=== PATIENT | male | born 1990 | race Hispanic/Latino ===

== ENCOUNTER 2017-11-25 13:22 | Emergency (ER) | payer SELFPAY | END 2017-11-25 13:38 | disposition left against medical advice (07) | LOC: ERS 13:22 | DX: Z53.21 Procedure and treatment not carried out due to patient leaving prior to being seen by health care provider (principal) ==

== ENCOUNTER → 2018-04-07 | Emergency (ER) | payer SELFPAY ==
[~2018-04-07] MED LIST: Ibuprofen 200 MG TAB ONE
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
== END ==
LOC: ERS 16:49
DX: M67.431 Ganglion, right wrist (principal); F17.210 Nicotine dependence, cigarettes, uncomplicated

== ENCOUNTER 2018-07-04 12:08 | Inpatient (IN) | payer SELFPAY ==
[~2018-07-04 12:08] MED LIST changes: +Gadobenate Dimeglumine 529 MG/1 ML (20ML VIAL) ONE; -Ibuprofen 200 MG TAB ONE
[2018-07-04 14:17] LABS: #Basophils 0.1 thou/uL (0.0-0.2); #Eosinphils 0.3 thou/uL (0.0-0.7); #Lymphocytes 3.2 thou/uL (1.20-3.40); #Monocytes 0.7 thou/uL (0.11-0.59); #Neutrophils 3.8 thou/uL (1.40-6.50); %Basophils 1.7 % (0.0-1.0); %Eosinophils 3.8 % (0.0-10.0); %Monocytes 8.9 % (0.0-10.0); %Neutrophils 46.7 % (42.0-75.0); Mean Corpuscular HGB CONC 32.7 g/dL (32.0-36.0); Mean Corpuscular Hemoglobin 30.6 pg (27.0-31.0); Mean Corpuscular Volume 93.8 fL (78.0-98.0); Mean Platelet Volume 8.9 fL (7.4-10.4); Platelet Count 248 thou/uL (130-400); RBC Distribution Width 11.4 % (11.5-14.5); Red Blood Cell (RBC) Count 5.54 mill/uL (4.70-6.10); White Blood Cell (WBC) Count 8.1 thou/uL (4.8-10.8)
[2018-07-04 14:41] LABS: ALT (SGPT) 15 U/L (8-55); AST (SGOT) 14 U/L (5-34); Albumin 4.9 g/dL (3.5-5.0); Alkaline Phosphatase 68 U/L (40-150); Anion Gap 10 mmol/L (10-20); BUN (Urea Nitrogen) 13 mg/dL (8.9-20.6); Bilirubin, Total 0.3 mg/dL (0.2-1.2); CRP (Inflammatory) Less than 0.50 mg/dL (= or < 0.5); Calc. Creatinine Clearance 0 mL/min (70-130); Calcium 9.7 mg/dL (7.8-10.44); Carbon Dioxide 28 mmol/L (22-29); Chloride 103 mmol/L (98-107); Estimated GFR-MDRD Greater than 90; Globulin 2.5 g/dL (2.4-3.5); Glucose 82 mg/dL (70-105); Potassium 3.4 mmol/L (3.5-5.1); Protein, Total 7.4 g/dL (6.0-8.3); Sodium 138 mmol/L (136-145)
--- NOTE | 2018-07-04 16:25 | MRI ---
MRI thoracic spine with and without contrast Clinical history: Back pain.:. History of epidural injection FINDINGS: There is no evidence of acute compression fracture. No retropulsion of bone. There is focal marrow edema involving the anterior/inferior aspect of T9 vertebral body. There is no evidence of significant intramedullary signal abnormality. No mass-producing enhancement of vertebral canal. No a cute disc space inflammation or enhancement. There is a small right paracentral disc protrusion at the T3-4 level with slight effacement of ventral right hemicord, small right paracentral disc protrus ion with slight flattening of right ventral hemicord at the T4-5 level. Additional mild multilevel disc degenerative changes are present with slight effacement of ventral thecal sac. IMPRESSION: There is no MR evidence of mass-producing enhancement of the vertebral canal. No epidural abscess is evident. Small multilevel disc protrusions with effacement of the thoracic spinal cord, as above. Transcribed Date/Time: 07/04/2018 7:22 PM
--- NOTE | 2018-07-04 16:48 | MRI ---
MRI Cervical spine with and without contrast: HISTORY: Neck Pain COMPARISON: None FINDINGS: The craniocervical junction is unremarkable. There is increased T2 signal, intramedullary in location, within the cervical spinal cord at the T5-6 level. There is motion which distorts the cord signal, thus limiting evaluation Posterior paraspinous soft tissue edema is present. C1-2:No significant stenosis. C2-3:No significant stenosis. C3-4:Mild disc bulge with effacement of ventral thecal sac. There is left uncinate process hypertroph y with mild left foraminal stenosis C4-5:Small central disc protrusion without significant cord compromise or foraminal stenosis C5-6:Right paracentral disc protrusion is present. In addition, there is extradural enhancing signal, which is separate from the disc protrusion, with associated pathologic dural based enhancement that ascends to the proximal C5 level and inferiorly to the mid C6 level. This does approximate the v entral cervical spinal cord with slight right hemicord effacement. There is associated marrow enhancement of the adjacent, superior aspect of the C6 vertebral body which demonstrates edema. C6-7: No significant stenosis. C7-T1:No significant stenosis IMPRESSION: Abnormal extradural enhancement, involving anterior aspect of the vertebral canal of the C5 and C6 le gabrielle with associated right ventral hemicord effacement. This is adjacent to, but separate from disc protrusion. This may relate to inflammatory enhancement given its configuration therefore the possibi lity of epidural phlegmon/abscess is not excluded. Adjacent mild increased T2 signal of the cervical spinal cord at this level could relate to reactive edema, although motion artifact does limi t evaluation. There is also edema/enhancement of the adjacent C6 vertebral body Correlate clinically Telephone call placed to Faheem alvarado at the time of dictation, 1640 hours. Transcribed Date/Time: 07/04/2018 7:29 PM
[2018-07-04] MEDS ORDERED: cefTRIAXone\\ROCEPHIN 2 GM VIAL ONE (17:27)
[2018-07-04] MEDS ORDERED: Clindamycin/D5W 900 mg/50 ml Premix Bag ONE (17:27)
[2018-07-04] MEDS ORDERED: Morphine 4 MG/ML VIAL ONE (17:27)
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
[2018-07-04 19:08] LABS: Color Of CSF Supernatant COLORLESS (Colorless); Tube # 2; Unspun CSF Color COLORLESS (Colorless)
[2018-07-04 19:20] LABS: CSF, Glucose 52 mg/dl (40-70); CSF, Protein 42 mg/dL (15-40)
[2018-07-04 19:21] LABS: CSF Source CSF; Clarity Clear (Clear); RBC Count - Manual 17 /cumm (None Seen); Tube # 4; WBC/NonHematics Count - Manual 2 /cumm (0-5)
[2018-07-04 20:22] VITALS: BMI 23.1
[2018-07-04] MEDS ORDERED: Heparin 1,000 UNITS/ML VIAL ONE (20:38)
[2018-07-04] MEDS ORDERED: Acetaminophen 325 MG TAB PO PRN (20:48)
[2018-07-04] MEDS ORDERED: Ibuprofen 800 MG TAB PO PRN (20:53)
[2018-07-04] MEDS: Nicotine 14 MG PATCH TD SCH (21:18)
[2018-07-05 00:31] LABS: Syphilis Antibody Nonreactive (Nonreactive); Syphilis Antibody Index 0.01 S/CO (<1.00 Non-Reactive)
[2018-07-05 00:33] LABS: HIV (1/2) Antibody/Antigen Non-Reactive (NonReactive); HIV 1/2 INDEX 0.08 S/CO (<1.00); Hep C IgG Ab Non-Reactive (NonReactive); Hep C Index 0.07 S/CO (0-0.79)
--- NOTE | 2018-07-05 01:57 | OP ---
DATE OF PROCEDURE: 07/04/2018 PROCEDURE PERFORMED: Lumbar puncture with CSF collection. Consent Obtained. DESCRIPTION OF PROCEDURE: The patient was brought into the trauma room 11. He was placed in the lateral decubitus position. The patient was prepped with Betadine and draped in sterile fashion. A 22-gauge needle was used to for local anesthesia, 1% lidocaine without epinephrine. An 8-gauge spinal needle was passed at L4-L5 space with return of clear CSF on the first pass. CSF flow was slow, but I was able to collect 2 mL in all 4 tubes. The spinal needle was then removed and a small bandage was placed. The patient tolerated the procedure well. The CSF was sent to the lab for evaluation with WBCs, RBCs, protein, glucose, Gram stain, as well as cultures. We will continue to follow these results. Job ID: [id number] MTDD
--- NOTE | 2018-07-05 02:03 | CON ---
DATE OF CONSULTATION: HISTORY OF PRESENT ILLNESS: The patient is a 27-year-old male who presented to the ER for neck pain. The patient reports his neck pain began yesterday, describes as stiff sensation and painful with any movement. He reports he has history of chronic neck and upper back pain and recently followed up with pain management, Dr. Morataya and had upper thoracic epidural steroid injection on Saturday07/02/18. Following the injection, patient had gradual worsening of his neck pain and discomfort with any range of motion. He denies any headaches, dizziness, nausea , vomiting. Denies any fever. He has no other associated symptoms. MRI of the cervical spine was completed, which was notable for T2 enhancement of the epidural space at C5-C6 as well as prevertebral edema concerning for infectious process. Neurosurgery was consulted for further evaluation of these findings. His is lab work shows normal WBC and CRP. He has been afebrile throughout his course. PAST MEDICAL HISTORY: Chronic neck and back pain. PAST SURGICAL HISTORY: No prior surgeries. SOCIAL HISTORY: The patient does not smoke. Denies IV drug use. ALLERGIES: NO KNOWN DRUG ALLERGIES. REVIEW OF SYSTEMS: Per HPI. PHYSICAL EXAMINATION: VITAL SIGNS: BP is 107/68, pulse is 58, respiration rate is 16, the patient has 97.8 temperature. CONSTITUTIONAL: GCS 15. A and O x4. No acute distress. HEENT: Head is normocephalic and atraumatic. Eyes, PERRLA. Extraocular movements intact. ENT : Oral mucosa is pink, intact and moist. The patient has normal voice. NECK: Positive meningismus and nuchalrigidity. CARDIOVASCULAR: Regular rate and rhythm. RESPIRATORY: Symmetric chest expansion. MUSCULOSKELETAL: Free active range of motion of all extremities. No focal motor weakness. No reflex asymmetry. NEUROLOGIC: A and O x4. Normal speech. No focal neurologic deficits are appreciated. ASSESSMENT AND PLAN: This is an otherwise healthy 27-year-old male with progressively worsening neck pain following an epidural steroid injection the day prior. He has findings concerning on MRI concerning for infectious process at the C5-C6 epidural space. There is no obvious fluid collection or drainable abscess apparent on this MRI. At this point, no acute neurosurgical intervention is anticipated. We will do LP in the emergency department for further evaluation of the cerebrospinal fluid. I have recommended admission to the Medical Service and also ID consult. I have discussed this plan with Dr. Trejo who is in agreement. Job ID: [id number] MTDD
[2018-07-05 02:31] LABS: Amphetamine Not Detected (NotDetected); Barbiturates Screen Not Detected (NotDetected); Benzodiazepine Screen Not Detected (NotDetected); Cocaine Metabolite Screen Not Detected (NotDetected); Medtox Reader # READER 4; Methadone Not Detected (NotDetected); Methamphetamine Not Detected (NotDetected); Opiate Screen Detected (NotDetected); Phencyclidine (PCP) Not Detected (NotDetected); THC/Cannabinoid Screen Not Detected (NotDetected); Tricyclic Screen Not Detected (NotDetected)
[2018-07-05 02:32] LABS: Medtox Control Line Valid? VALID (VALID); Oxycodone Screen Not Detected (NotDetected)
[2018-07-05] MEDS: cefTRIAXone\\ROCEPHIN 2 GM in Sodium Chloride 0.9% 100 ML IVPB SCH ×2 (04:20→14:44)
[2018-07-05] MEDS: Vancomycin HCl 1.25 GM in Sodium Chloride 0.9% 250 ML 250 ML IVPB SCH ×3 (05:18→22:50)
[2018-07-05] MEDS ORDERED: cefTRIAXone\\ROCEPHIN 2 GM in Sodium Chloride 0.9% 100 ML IVPB SCH (06:00)
[2018-07-05 06:40] LABS: #Basophils 0.1 thou/uL (0.0-0.2); #Eosinphils 0.3 thou/uL (0.0-0.7); #Lymphocytes 2.9 thou/uL (1.20-3.40); #Monocytes 0.8 thou/uL (0.11-0.59); #Neutrophils 5.6 thou/uL (1.40-6.50); %Basophils 0.8 % (0.0-1.0); %Eosinophils 3.3 % (0.0-10.0); %Lymphocytes 30.1 % (21.0-51.0); %Monocytes 8.5 % (0.0-10.0); %Neutrophils 57.2 % (42.0-75.0); Hemoglobin 14.2 g/dL (14.0-18.0); Mean Corpuscular HGB CONC 32.5 g/dL (32.0-36.0); Mean Corpuscular Hemoglobin 30.9 pg (27.0-31.0); Mean Corpuscular Volume 95.1 fL (78.0-98.0); Mean Platelet Volume 8.7 fL (7.4-10.4); Platelet Count 219 thou/uL (130-400); RBC Distribution Width 11.2 % (11.5-14.5); Red Blood Cell (RBC) Count 4.58 mill/uL (4.70-6.10); White Blood Cell (WBC) Count 9.8 thou/uL (4.8-10.8)
[2018-07-05] MEDS: Ketorolac Tromethamine 30 MG/ML VIAL IVP PRN ×4 (06:44→22:51)
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
[2018-07-05] MEDS: Enoxaparin Sodium 40 MG/0.4 ML SYRINGE SC SCH (07:52)
[2018-07-05] MEDS: Nicotine 14 MG PATCH TD SCH (22:58)
[2018-07-06] MEDS: Ketorolac Tromethamine 30 MG/ML VIAL IVP PRN ×2 (05:19→13:50)
[2018-07-06] MEDS: cefTRIAXone\\ROCEPHIN 2 GM in Sodium Chloride 0.9% 100 ML IVPB SCH ×2 (05:20→16:02)
[2018-07-06] MEDS: Vancomycin HCl 1 GM in Premix Bag 1 BAG IVPB SCH ×3 (05:20→16:01)
[2018-07-06 06:27] LABS: #Basophils 0.1 thou/uL (0.0-0.2); #Eosinphils 0.5 thou/uL (0.0-0.7); #Lymphocytes 2.3 thou/uL (1.20-3.40); #Monocytes 0.7 thou/uL (0.11-0.59); #Neutrophils 3.8 thou/uL (1.40-6.50); %Basophils 1.2 % (0.0-1.0); %Eosinophils 7.2 % (0.0-10.0); %Neutrophils 51.7 % (42.0-75.0); Mean Corpuscular HGB CONC 32.9 g/dL (32.0-36.0); Mean Corpuscular Hemoglobin 31.2 pg (27.0-31.0); Mean Corpuscular Volume 94.9 fL (78.0-98.0); Mean Platelet Volume 8.5 fL (7.4-10.4); Platelet Count 204 thou/uL (130-400); RBC Distribution Width 11.1 % (11.5-14.5); Red Blood Cell (RBC) Count 4.49 mill/uL (4.70-6.10); White Blood Cell (WBC) Count 7.3 thou/uL (4.8-10.8)
--- NOTE | 2018-07-06 06:29 | PDOC.FM ---
- Subjective Subjective: No overnight events. Still working on getting MRI images from outside hospital. Denies pain, fever, chills, new weakness or loss of continence. - Objective MAR Reviewed: Yes Vital Signs & Weight: Vital Signs (12 hours) Temp Pulse Resp BP Pulse Ox 07/05/18 19:51 97.8 F 51 L 16 102/59 L 96 07/05/18 19:39 96 Weight Weight 66.905 kg Result Diagrams: 07/06/18 06:07 07/04/18 14:00 Phys Exam - Physical Examination Constitutional: NAD HEENT: moist MMs Neck: supple Respiratory: no wheezing, clear to auscultation bilateral Cardiovascular: RRR, no significant murmur Gastrointestinal: soft, non-tender, positive bowel sounds Musculoskeletal: no edema Neurological: moves all 4 limbs Psychiatric: normal affect, A&O x 3 Skin: no rash Dx/Plan (1) Epidural abscess Code(s): G06.2 - EXTRADURAL AND SUBDURAL ABSCESS, UNSPECIFIED Status: Acute - Plan Plan: 27yo male presents with epidural abscess Epidural abscess - VSS, no leukocytosis, CRP<0.5 - 07/02 steroid spinal injection by pain management - MRI C5-6: extradural enhancement, cannot exclude epidural abscess - Blood cultures pending (drawn s/p ceftriaxone x1 in ED) - Continue vanc, ceftriaxone (07/04) - Dr. Reyes consulted, appreciate recs - Neurosurgery consulted from ED -spinal tap 07/04, CSF studies pending - HIV, Hep, syphilis negative Code Status: FULL DVT ppx: Lovenox PCP: CC Addendum - Attending - Attending Attestation Date/Time: 07/06/18 0554 I personally evaluated the patient and discussed the management with Dr. Grimm I agree with the History, Examination, Assessment and Plan documented above with any addition or exceptions noted below. CSF studies NR to date patient Patient stable recommend increased activity continue ABX day # 2 pending rec from ID and Neurosurgery and CSF culture results. Epidural abscess could not be ruled out on MRI however clinically patient remains with s/s any significant infection.
[2018-07-06] MEDS: Enoxaparin Sodium 40 MG/0.4 ML SYRINGE SC SCH (07:40)
--- NOTE | 2018-07-06 08:03 | PRG ---
DATE OF SERVICE: 07/06/2018 The patient is a 27-year-old male, admitted on 07/04/2018 by the Family Medicine Service for concern of infection in the epidural and pervertebral space of cervical spine at C5-C6. There was no clear abscess or drainable fluid collection. His neck pain and nuchal rigidity has improved since admission. He has mild discomfort with extension. He has been afebrile throughout the admission. His CSF cultures have so far been negative for any growth. Additionally, other CSF studies were negative for significant abnormalities. His blood cultures have also remained negative. His WBC and CRP have remained normal. The patient is awake, alert, comfortable, in no acute distress. He has mild discomfort with extension of the neck. He is nonfocal on his exam. At this point, the patient remains neurologically intact. There are no plans for neurosurgical intervention at this time. Defer to Medical Team and ID for antibiotic regimen. Job ID: [id number] MTDD
--- NOTE | 2018-07-06 10:16 | PRG ---
DATE OF SERVICE: 07/06/2018 I agree with Keesha Kim's evaluation on 07/04/2018 and 07/06/2018. The patient seems to be improving on antibiotics. His MRI findings were quite subtle and lumbar puncture has been unremarkable thus far. We will defer to the Primary Team and Infectious Disease regarding the need for ongoing empirical antibiotics. No specific neurosurgical recommendations. Job ID: [id number]
[2018-07-06] MEDS ORDERED: Senokot 8.6 MG TAB PO PRN (15:38)
[2018-07-06] MEDS ORDERED: Polyethylene Glycol 3350 17 GM Packet PO PRN (15:38)
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
[2018-07-06] MEDS: Nicotine 14 MG PATCH TD SCH (20:30)
[2018-07-06 23:22] LABS: Vancomycin, Trough 19.8 ug/mL
[2018-07-07] MEDS: Vancomycin HCl 1 GM in Premix Bag 1 BAG IVPB SCH ×4 (00:09→19:10)
[2018-07-07] MEDS: Ketorolac Tromethamine 30 MG/ML VIAL IVP PRN (00:15)
[2018-07-07] MEDS: cefTRIAXone\\ROCEPHIN 2 GM in Sodium Chloride 0.9% 100 ML IVPB SCH ×2 (05:00→17:11)
--- NOTE | 2018-07-07 06:50 | PDOC.FM ---
- Subjective Subjective: No overnight events. Denies pain, shortness of breath, fever, chills, new weakness. Had some left upper leg cramping/tingling last night that has resolved. Will have PICC placed today. - Objective MAR Reviewed: Yes Vital Signs & Weight: Vital Signs (12 hours) Temp Pulse Resp BP Pulse Ox 07/07/18 04:00 97.2 F L 54 L 16 115/64 97 07/07/18 00:00 98.2 F 55 L 16 125/72 96 07/06/18 20:00 97.7 F 65 16 123/75 96 Weight Weight 66.905 kg I&O: 07/05/18 07/06/18 07/07/18 06:59 06:59 06:59 Intake Total 4100 Balance 4100 Result Diagrams: 07/07/18 07:25 07/07/18 07:25 Phys Exam - Physical Examination Constitutional: NAD HEENT: moist MMs Neck: supple Respiratory: no wheezing, clear to auscultation bilateral Cardiovascular: RRR, no significant murmur Gastrointestinal: soft, non-tender, positive bowel sounds Musculoskeletal: no edema Neurological: moves all 4 limbs Psychiatric: normal affect, A&O x 3 Skin: no rash Dx/Plan (1) Epidural abscess Code(s): G06.2 - EXTRADURAL AND SUBDURAL ABSCESS, UNSPECIFIED Status: Acute - Plan Plan: 27yo male presents with epidural abscess Suspected Epidural abscess - VSS, no leukocytosis, CRP<0.5. - HIV, Hep, syphilis negative - 07/02 steroid spinal injection by pain management - MRI C5-6: extradural enhancement, cannot exclude epidural abscess - Dr. Reyes consulted, appreciate recs - Blood cultures NGTD (drawn s/p ceftriaxone x1 in ED). Spinal fluid from 07/04, CSF studies NGTD - Continue vanc, ceftriaxone (07/04). Will have PICC line placed today Code Status: FULL DVT ppx: Lovenox PCP: CC Addendum - Attending - Attending Attestation Date/Time: 07/07/18 1899 I personally evaluated the patient and discussed the management with Dr. Grimm. I agree with the History, Examination, Assessment and Plan documented above with any addition or exceptions noted below. Pt is resting comfortably this morning. will get picc line today. Case mgmt is working to arrange for outpt antibiotics.
[2018-07-07] MEDS: Enoxaparin Sodium 40 MG/0.4 ML SYRINGE SC SCH (07:33)
[2018-07-07 08:05] LABS: #Basophils 0.1 thou/uL (0.0-0.2); #Eosinphils 0.5 thou/uL (0.0-0.7); #Lymphocytes 1.8 thou/uL (1.20-3.40); #Monocytes 0.7 thou/uL (0.11-0.59); #Neutrophils 3.2 thou/uL (1.40-6.50); %Basophils 1.5 % (0.0-1.0); %Eosinophils 7.7 % (0.0-10.0); %Lymphocytes 29.4 % (21.0-51.0); %Monocytes 10.5 % (0.0-10.0); Hemoglobin 14.3 g/dL (14.0-18.0); Mean Corpuscular HGB CONC 32.4 g/dL (32.0-36.0); Mean Corpuscular Hemoglobin 30.2 pg (27.0-31.0); Mean Corpuscular Volume 93.2 fL (78.0-98.0); Platelet Count 211 thou/uL (130-400); RBC Distribution Width 11.1 % (11.5-14.5); Red Blood Cell (RBC) Count 4.73 mill/uL (4.70-6.10); White Blood Cell (WBC) Count 6.3 thou/uL (4.8-10.8)
[2018-07-07 08:13] LABS: Calc. Creatinine Clearance 138 mL/min (70-130); Estimated GFR-MDRD Greater than 90
[2018-07-07 08:31] LABS: PTT 30.6 SEC (22.9-36.1); Prothrombin Time 13.4 SEC (12.0-14.7)
--- NOTE | 2018-07-07 14:31 | SPC ---
SPC CVP LINE PICC INITAL >5 History: [Need for long-term IV access.] Comparison: None Findings: Patient was brought to the fluoroscopy suite. Questions were answered. Informed consent was obtained. Timeout performed. The patient's left arm was prepped and draped in normal sterile fashion. Using ultrasound guidance le ft basilic vein was accessed. Over a wire and through a peel-away sheath with fluoroscopic guidance a PICC was placed with tip in the inferior SVC. Patient tolerated the procedure well without complica tion. Impression: Technically successful PICC line placement. Fluoroscopy time: 0.1 minutes
--- NOTE | 2018-07-07 17:20 | RAD ---
Radiograph chest one view: HISTORY: 27-year-old male with positional chest pain FINDINGS: The visualized lung mercado are clear. The cardiomediastinal silhouette is normal. No pneumothorax. Th ere is a left-sided PICC with distal tip overlying the upper portion of the right atrium. IMPRESSION: No acute cardiopulmonary findings. Left-sided peripherally inserted central catheter.
--- NOTE | 2018-07-07 20:33 | RAD ---
EXAM: CHEST ONE VIEW: History: Confirm PICC catheter placement. Comparison: 07-07-18 at 4:46 p.m. FINDINGS: Heart size is normal. The lungs are clear. Granuloma calcification in the left midlung zone, stable. The PICC line appears to be slightly pulled back on the previous study the tip extended down to the u pper T9 vertebral body level and now is at the level of the mid T8 vertebral body. IMPRESSION: No acute intrathoracic disease. The tip of the PICC catheter is at the mid lower T8 level. POS: RRE
[2018-07-07] MEDS: Nicotine 14 MG PATCH TD SCH (20:47)
[2018-07-07 23:18] LABS: Vancomycin, Trough 27.4 ug/mL
[2018-07-08] MEDS: Ketorolac Tromethamine 30 MG/ML VIAL IVP PRN ×2 (00:01→08:45)
[2018-07-08 05:21] LABS: #Basophils 0.1 thou/uL (0.0-0.2); #Eosinphils 0.6 thou/uL (0.0-0.7); #Lymphocytes 2.6 thou/uL (1.20-3.40); #Monocytes 1.1 thou/uL (0.11-0.59); #Neutrophils 4.9 thou/uL (1.40-6.50); %Basophils 1.1 % (0.0-1.0); %Eosinophils 6.1 % (0.0-10.0); %Lymphocytes 27.8 % (21.0-51.0); %Monocytes 11.9 % (0.0-10.0); Hemoglobin 14.6 g/dL (14.0-18.0); Mean Corpuscular HGB CONC 32.4 g/dL (32.0-36.0); Mean Corpuscular Hemoglobin 30.6 pg (27.0-31.0); Mean Corpuscular Volume 94.6 fL (78.0-98.0); Mean Platelet Volume 8.6 fL (7.4-10.4); Platelet Count 211 thou/uL (130-400); RBC Distribution Width 11.1 % (11.5-14.5); Red Blood Cell (RBC) Count 4.77 mill/uL (4.70-6.10); White Blood Cell (WBC) Count 9.3 thou/uL (4.8-10.8)
[2018-07-08] MEDS: cefTRIAXone\\ROCEPHIN 2 GM in Sodium Chloride 0.9% 100 ML IVPB SCH (05:31)
[2018-07-08] MEDS: Vancomycin HCl 1 GM in Premix Bag 1 BAG IVPB SCH ×2 (05:32→14:59)
[2018-07-08] MEDS ORDERED: Sodium Chloride 0.9% 100 ML ONE (06:05)
[2018-07-08] MEDS ORDERED: Tranexamic Acid 1,000 MG/10 ML VIAL ONE (06:05)
--- NOTE | 2018-07-08 06:47 | PDOC.FM ---
- Subjective Subjective: Feeling well. No overnight events. Working on arranging outpt IV antibiotics. Chest discomfort resolved last night after PICC line was pulled back. No concerns or complaints. - Objective MAR Reviewed: Yes Vital Signs & Weight: Vital Signs (12 hours) Temp Pulse Resp BP Pulse Ox 07/07/18 20:00 97.5 F L 60 18 122/59 L 98 Weight Weight 66.905 kg I&O: 07/06/18 07/07/18 07/08/18 06:59 06:59 06:59 Intake Total 4100 Balance 4100 Result Diagrams: 07/08/18 04:49 07/07/18 07:25 Phys Exam - Physical Examination Constitutional: NAD HEENT: moist MMs Neck: supple Respiratory: no wheezing, clear to auscultation bilateral Cardiovascular: RRR, no significant murmur Gastrointestinal: soft, non-tender, positive bowel sounds Musculoskeletal: no edema Neurological: moves all 4 limbs Psychiatric: normal affect, A&O x 3 Skin: no rash Dx/Plan (1) Epidural abscess Code(s): G06.2 - EXTRADURAL AND SUBDURAL ABSCESS, UNSPECIFIED Status: Acute - Plan Plan: 27yo male presents with epidural abscess Suspected Epidural abscess - VSS, no leukocytosis, CRP<0.5. - HIV, Hep, syphilis negative - 07/02 steroid spinal injection by pain management - MRI C5-6: extradural enhancement, cannot exclude epidural abscess - Dr. Reyes consulted, appreciate recs - Blood cultures NGTD (drawn s/p ceftriaxone x1 in ED). Spinal fluid from 07/04, CSF studies NGTD - Continue vanc, ceftriaxone (07/04). PICC line placed. CM consulted for outpt IV ABX acquisition Code Status: FULL DVT ppx: Lovenox PCP: CC Addendum - Attending - Attending Attestation Date/Time: 07/08/18 [id number] I personally evaluated the patient and discussed the management with Dr. Grimm. I agree with the History, Examination, Assessment and Plan documented above with any addition or exceptions noted below. Pt is doing well. His picc line was pulled back and chest discomfort resolved. Waiting on outpt antibiotics to be arranged.
[2018-07-08 07:25] VITALS: TEMP 97.7
[2018-07-08] MEDS: Enoxaparin Sodium 40 MG/0.4 ML SYRINGE SC SCH (08:41)
[2018-07-08 16:49] VITALS: BP 143/83
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
[2018-07-10] MEDS ORDERED: Ibuprofen 800 MG TAB PO PRN (06:00)
--- NOTE | 2018-07-10 16:09 | PQF ---
[employer] Coordinator [employer] Winform ViewerCHAPARRITA GOODEN GRADY *r [id number] CLINICAL DOCUMENTATION CLARIFICATION FORM: POST DISCHARGE Addendum to original discharge summary date: ____ Late entry note date: __ DATE: 07/10/2018 ATTN: VIC CLRAOS Please exercise your independent, professional judgment in responding to the clarification form. Clinical indicators are provided on the bottom of this form for your review Please check appropriate box(s): [ x ] (Condition) is a complication of steroid injection [ ] (Condition) is not a complication of steroid injection [ ] Other diagnosis [ ] Unable to determine In addition, please specify: Present on Admission (POA): [x ] Yes [ ] No [ ] Unable to determine CLINICAL INDICATORS - SIGNS / SYMPTOMS / LABS CT / x-ray results MRI SHOWED C5-6 EXTRADURAL ENHANCEMENT Pain IN NECK INCREASE BLOOD CULTURE BACILLUS SPECIES IN H&P 07/04 Infection EPIDURAL ABSCESS H&P 07/04 RISK FACTORS Recent STEROID SPINAL INJECTION ON 07/02 BEFORE ADMISSION TREATMENT: Antibiotics: ROCEPHIN AND VANCOMYCIN H&P 07/04 (This form is maintained as a part of the permanent medical record) 2014 [employer] All Rights Reserved [email or web address] [phone] [facility]
== END 2018-07-08 16:48 | disposition home or self-care (01) | DRG 867 ==
LOC: ERS 12:08 → T4-A 18:07
PROVIDERS: ADMIT Family Medicine; ATTEND Family Medicine
PROC: 009U3ZX Drainage of Spinal Canal, Percutaneous Approach, Diagnostic (ICD-10-PCS; principal; 2018-07-04)
PROC: 02HV33Z Insertion of Infusion Device into Superior Vena Cava, Percutaneous Approach (ICD-10-PCS; 2018-07-07)
PROC: B5181ZA Fluoroscopy of Superior Vena Cava using Low Osmolar Contrast, Guidance (ICD-10-PCS; 2018-07-07)
DX: T80.29XA Infection following other infusion, transfusion and therapeutic injection, initial encounter (principal); G06.2 Extradural and subdural abscess, unspecified; L81.8 Other specified disorders of pigmentation; G89.29 Other chronic pain; M54.2 Cervicalgia; B96.89 Other specified bacterial agents as the cause of diseases classified elsewhere
CPT/HCPCS: 36415; 36569; 71045; 72156; 72157; 80053; 80202; 80306; 82565; 82945; 84157; 85025; 85610; 85652; 85730; 86140; 86780; 86803; 87040; 87070; 87205; 87389; 89051; 96365; 96375; A9577; C1751; J0690; J0696; J1644; J1650; J1885; J2270; J3370; J3490; J7050

== ENCOUNTER 2018-08-15 14:35 | Outpatient (CLI) | payer SELFPAY ==
--- NOTE | 2018-08-15 16:53 | MRI ---
Exam: MRI cervical spine with and without contrast COMPARISON: 07/04/2018 HISTORY: Epidural abscess. FINDINGS: Appropriate T1 marrow signal intensity of the cervical vertebra. Cervical spine vertebral body height is maintained. No fracture. No significant STIR hyperintensity to suggest vertebral body edema or ligamentous injury. Straightening of normal cervical lordosis is presumed to be positional Postcontrast images do not demonstrate any abnormal enhancement with regards to the vertebral bodies. There is no abnormal enhancement with regards to the visualized brain parenchyma, cervicomedullary junction, cervical cord and the upper thoracic cord. There is appropriate signal intensity in size of the visualized spinal cord. There is persistent dural prominence along the right aspect of the central spinal canal at the C5-C6 level. This prominence is probably the anterior right epidural region. There does appear to be an associated disc. The degree of enhancement has decreased and the residual enhancement is presumed to be due to reactive changes of the posterior longitudinal ligament. No significant phlegmonous change in the prevertebral or paraspinal soft tissues/musculature C2-C3: No significant central canal stenosis or neural foraminal narrowing C3-C4: No significant central canal stenosis or neural foraminal narrowing. C4-C5: No significant central canal stenosis or neural foraminal narrowing C5-C6: Central/right paracentral disc osteophyte complex. Mass effect upon the right hemicord. No cor d hyperintensity. Mild narrowing of the right subarticular zone. Bilateral facet hypertrophy with moderate right and [id number] left foraminal narrowing 6-C7: No significant central canal stenosis or neural foraminal narrowing C7-T1 no significant central canal stenosis or foraminal narrowing. IMPRESSION: Persistent degenerative changes involving the right subarticular zone at C5-C6 with pers istent enhancement and thickening of the posterior longitudinal ligament enhancement and ligamentous thickening is presumed to be due to reactive change from disc protrusion. No evidence of epidural abscess or phlegmon. Transcribed Date/Time: 08/15/2018 5:16 PM
== END 2018-08-15 14:36 | disposition home or self-care (01) ==
LOC: MRI 14:35
PROVIDERS: ATTEND Internal Medicine Infectious Disease
DX: G06.2 Extradural and subdural abscess, unspecified (principal); M47.812 Spondylosis without myelopathy or radiculopathy, cervical region
CPT/HCPCS: 72156

== ENCOUNTER 2019-07-17 09:16 | Emergency (ER) | payer OTHER, SELFPAY ==
[2019-07-17 18:20] LABS: SARS-CoV-2 MS2 Positive; SARS-CoV-2 N Gene Negative; SARS-CoV-2 S Gene Negative; SARS-CoV-2 orf1ab Negative
== END 2019-07-17 09:53 | disposition home or self-care (01) ==
LOC: ERS 09:16
DX: Z03.818 Encounter for observation for suspected exposure to other biological agents ruled out (principal)
CPT/HCPCS: 87635; 99283; U0003

== ENCOUNTER 2020-03-17 10:56 | Emergency (ER) | payer OTHER, SELFPAY ==
[2020-03-17 17:03] LABS: SARS-CoV-2 MS2 Positive; SARS-CoV-2 N Gene Negative; SARS-CoV-2 S Gene Negative; SARS-CoV-2 by NAA Not Detected (NotDetected); SARS-CoV-2 orf1ab Negative
== END 2020-03-17 11:30 | disposition home or self-care (01) ==
LOC: ERS 10:56
DX: Z20.822 Contact with and (suspected) exposure to COVID-19 (principal); F17.210 Nicotine dependence, cigarettes, uncomplicated
CPT/HCPCS: 87635; 99283; U0003

== ENCOUNTER 2021-07-30 19:04 | Emergency (ER) | payer SELFPAY | END 2021-07-30 21:07 | disposition home or self-care (01) | LOC: ERS 19:04 | DX: S83.91XA Sprain of unspecified site of right knee, initial encounter (principal); F17.210 Nicotine dependence, cigarettes, uncomplicated; X58.XXXA Exposure to other specified factors, initial encounter ==

== ENCOUNTER 2024-10-10 14:15 | Emergency (ER) | payer SELFPAY ==
[~2024-10-10 14:15] MED LIST changes: -Gadobenate Dimeglumine 529 MG/1 ML (20ML VIAL) ONE; +Iopamidol-370 76% 500 ML MDV (1 ML CHARGE) ONE
[2024-10-10 15:48] LABS: Bacteria/HPF None Seen HPF (None Seen); CAUTI Indications for Culture Dysuria,urgency,freq; Glucose, Urine (Dipstick) Normal (Negative); Leukocyte Negative Leu/uL (Negative); Protein, Urine (Dipstick) Negative (Neg-Trace); Specific Gravity, Urine 1.023 (1.002-1.036); WBC/HPF 0-3 HPF (0-3)
[2024-10-10 15:55] LABS: Urine Culture Reflex No No
[2024-10-10 16:37] LABS: #Basophils 0.08 10x3/uL (0.0-0.2); #Eosinophils 0.44 10x3/uL (0.0-0.7); #Monocytes 0.82 10x3/uL (0.11-0.59); #Neutrophils 5.31 10x3/uL (1.40-6.50); %Basophils 0.9 % (0.0-1.0); %Eosinophils 4.9 % (0.0-10.0); %Lymphocytes 25.4 % (21.0-51.0); %Monocytes 9.1 % (0.0-10.0); %Neutrophils 59.0 % (42.0-75.0); Hematocrit 45.9 % (42.0-52.0); Hemoglobin 14.8 g/dL (14.0-18.0); Mean Corpuscular Hemoglobin 30.1 pg (27.0-31.0); Mean Corpuscular Volume 93.3 fL (78.0-98.0); Platelet Count 245 10x3/uL (130-400); Red Blood Cell (RBC) Count 4.92 mill/uL (4.70-6.10); White Blood Cell (WBC) Count 9.00 10x3/uL (4.8-10.8)
[2024-10-10 16:54] LABS: ALT (SGPT) 23 U/L (Less than 45); AST (SGOT) 23 U/L (11-34); Albumin 4.2 g/dL (3.1-4.5); Alkaline Phosphatase 61 U/L (40-110); Anion Gap 12 mmol/L (10-20); BUN (Urea Nitrogen) 11 mg/dL (8.9-20.6); Bilirubin, Total 0.2 mg/dL (0.3-1.2); Calc. Creatinine Clearance 0 mL/min (70-130); Calcium 8.7 mg/dL (7.8-10.44); Carbon Dioxide 24 mmol/L (22-29); Chloride 103 mmol/L (98-107); Globulin 2.4 g/dL (2.4-3.5); Glucose 88 mg/dL (70-105); Lipase 11 U/L (8-78); Potassium 4.2 mmol/L (3.5-5.1); Sodium 135 mmol/L (136-145)
== END 2024-10-10 17:19 | disposition home or self-care (01) ==
LOC: ERS 14:15
DX: R10.9 Unspecified abdominal pain (principal); F17.210 Nicotine dependence, cigarettes, uncomplicated
CPT/HCPCS: 36415; 74177; 80053; 81001; 82565; 83690; 85025; Q9967